=== PATIENT | female | born 1995 | race Two or more races ===

== ENCOUNTER 2025-07-13 13:32 | Emergency (ER) | payer OTHER ==
[~2025-07-13] VITALS: Ht 162.6 cm; Wt 68.0 kg
[2025-07-13 13:41] VITALS: BP 116/81; O2SAT 98
[2025-07-13] MEDS ORDERED: CEFTRIAXONE SODIUM 1,000 MG VIAL IM STA (18:46)
[2025-07-13] MEDS ORDERED: KETOROLAC TROMETHAMINE 30 MG VIAL IM STA (18:46)
[2025-07-13] MEDS ORDERED: KETOROLAC TROMETHAMINE 30 MG VIAL ONE (18:58)
[2025-07-13] MEDS ORDERED: CEFTRIAXONE SODIUM 1,000 MG VIAL ONE (18:58)
[2025-07-13 19:40] LABS: BASO % 0.3 % (0.1-1.2); EOS # 0.10 (0.04-0.54); EOS % 0.9 % (0.7-7.0); LYMPH # 2.68 (1.18-3.74); LYMPH % 25.4 % (19.3-53.1); MEAN PLATELET VOLUME 10.20 fl (9.4-12.4); MONO # 0.55 (0.24-0.82); MONO % 5.2 % (4.7-12.5); NEUT # 7.18 (1.56-6.13); NEUT % 67.9 % (34.0-71.1); RED CELL DISTRIBUTION WIDTH 11.8 % (11.6-14.4)
[2025-07-13 20:10] LABS: ALT/SGPT 31.0 U/L (12-78); AST/SGOT 20.0 U/L (15-37); BILIRUBIN TOTAL 0.85 mg/dL (0.3-1.2); BUN CREA RATIO 13.0 (7.0-25.0); CREATININE SERUM 0.56 mg/dL (0.55-1.02); GFR 128.9; GLOBULINA 3.8 G/DL (2.4-3.5); GLUCOSE FASTING 88.0 mg/dL (65-100); OSMOLALITY SERUM 279.0 MOSM/KG (275-295)
[2025-07-13 21:09] LABS: URINE APPEARANCE Clear; URINE BILIRRUBIN Negative (NEGATIVE); URINE BLOOD Negative; URINE COLOR Yellow; URINE GLUCOSE Negative (NEGATIVE); URINE KETONE Trace (NEGATIVE); URINE LEUKOCYTE Trace; URINE NITRATE Negative; URINE PROTEIN Negative (NEGATIVE); URINE UROBILINOGEN 0.2 E.U./dl
[2025-07-13 21:12] LABS: URINE BACTERIA 806.3 uL (0.0-1933); URINE EPITHELIAL CELLS 52.9 uL (0.0-38.8); URINE RBC 7.7 uL (0.0-20.8); URINE WBC 34.9 uL (0.0-23.2)
[2025-07-13 21:26] LABS: URINE CAST 0.14 uL (0.0-1.40)
== END 2025-07-13 22:53 | disposition home or self-care (01) ==
LOC: ER 13:32
PROVIDERS: General Practice
DX: N30.80 Other cystitis without hematuria (principal); Z88.6 Allergy status to analgesic agent; Z88.1 Allergy status to other antibiotic agents